=== PATIENT | female | born 1980 | race Hispanic/Latino ===

== ENCOUNTER 2016-06-24 13:08 | Emergency (ER) | payer MEDICAID ==
[2016-06-24 13:19] VITALS: BP 128/82
[2016-06-24] MEDS ORDERED: TORADOL IM ONE (14:23)
--- NOTE | 2016-06-24 14:34 | Emergency Department Report ---
ED ENT HPI - General Chief complaint: Dental/Oral Stated complaint: MOUTH PAIN Time Seen by Provider: 06/24/16 14:16 Source: patient Mode of arrival: Ambulatory Limitations: No Limitations - History of Present Illness Initial comments: Patient presents with toothache x last night. States had extraction of tooth in question about 1 month ago. States had a growth spur developing at site of extraction. States told by dentist it will go away with time. States last night the spur penetrated out of her gum, casing her a lot of pain. Denies fever, chills, N/V, difficulty swallowing, sore throat. Patient has diabetes which is currently being managed by her PCP. States had office visit yesterday and was put on a new diabetes medication for better BG control. Now on Glipizide and Onglyzer, and topamax to curb/control her sugar/soda cravings. - Related Data Home Medications Medication Instructions Recorded Confirmed Last Taken glipiZIDE [Glucotrol] 5 mg PO DAILY 07/13/13 01/26/16 Unknown HYDROcodone/APAP 10-325 [Howell 1 each PO Q6HR PRN 01/26/16 01/26/16 Unknown 10/325] Losartan [Cozaar] 50 mg PO QDAY 01/26/16 01/26/16 Unknown Rivaroxaban [Xarelto] 20 mg PO QDAY 01/26/16 01/26/16 Unknown Saxagliptin HCl [Onglyza] 5 mg PO DAILY 01/26/16 01/26/16 Unknown traZODone [Desyrel] 100 mg PO QHS 01/26/16 01/26/16 Unknown Previous Rx's Medication Instructions Recorded Last Taken Type Oxycodone HCl/Acetaminophen 1 each PO Q6HR PRN #20 tablet 12/26/15 01/25/16 Rx [Percocet 10/325 mg] Magnesium Oxide [Rivera] 500 mg PO QDAY #10 tablet 01/26/16 Unknown Rx Ondansetron [Zofran Odt] 4 mg PO QID PRN #20 tab.rapdis 01/26/16 Unknown Rx Potassium Chloride 20 meq PO QDAY #10 tablet.er 01/26/16 Unknown Rx cloNIDine [Catapres] 0.1 mg PO BID PRN #15 tablet 01/26/16 Unknown Rx Acetaminophen/Codeine [Tylenol #3] 1 tab PO Q4HR PRN #5 tablet 06/24/16 Unknown Rx Ibuprofen [Motrin] 800 mg PO Q8HR PRN #10 tablet 06/24/16 Unknown Rx Allergies Allergy/AdvReac Type Severity Reaction Status Date / Time cephalexin monohydrate AdvReac Vomiting Verified 01/10/15 14:58 [From Keflex] tramadol HCl [From Ultram] AdvReac Vomiting Verified 01/10/15 14:58 ED Dental HPI - General Chief complaint: Dental/Oral Stated complaint: MOUTH PAIN Time Seen by Provider: 06/24/16 14:16 Source: patient Mode of arrival: Ambulatory Limitations: No Limitations - Related Data Home Medications Medication Instructions Recorded Confirmed Last Taken glipiZIDE [Glucotrol] 5 mg PO DAILY 07/13/13 01/26/16 Unknown HYDROcodone/APAP 10-325 [Howell 1 each PO Q6HR PRN 01/26/16 01/26/16 Unknown 10/325] Losartan [Cozaar] 50 mg PO QDAY 01/26/16 01/26/16 Unknown Rivaroxaban [Xarelto] 20 mg PO QDAY 01/26/16 01/26/16 Unknown Saxagliptin HCl [Onglyza] 5 mg PO DAILY 01/26/16 01/26/16 Unknown traZODone [Desyrel] 100 mg PO QHS 01/26/16 01/26/16 Unknown Previous Rx's Medication Instructions Recorded Last Taken Type Oxycodone HCl/Acetaminophen 1 each PO Q6HR PRN #20 tablet 12/26/15 01/25/16 Rx [Percocet 10/325 mg] Magnesium Oxide [Rivera] 500 mg PO QDAY #10 tablet 01/26/16 Unknown Rx Ondansetron [Zofran Odt] 4 mg PO QID PRN #20 tab.rapdis 01/26/16 Unknown Rx Potassium Chloride 20 meq PO QDAY #10 tablet.er 01/26/16 Unknown Rx cloNIDine [Catapres] 0.1 mg PO BID PRN #15 tablet 01/26/16 Unknown Rx Acetaminophen/Codeine [Tylenol #3] 1 tab PO Q4HR PRN #5 tablet 06/24/16 Unknown Rx Ibuprofen [Motrin] 800 mg PO Q8HR PRN #10 tablet 06/24/16 Unknown Rx Allergies Allergy/AdvReac Type Severity Reaction Status Date / Time cephalexin monohydrate AdvReac Vomiting Verified 01/10/15 14:58 [From Keflex] tramadol HCl [From Ultram] AdvReac Vomiting Verified 01/10/15 14:58 ED Review of Systems ROS: Stated complaint: MOUTH PAIN Other details as noted in HPI Comment: All other systems reviewed and negative ED Past Medical Hx - Past Medical History Previous Medical History?: Yes Hx Hypertension: Yes (takes losartan 50mg) Hx Diabetes: Yes (controlled with glipizide 10mg and Onglyza 5mg) Hx Renal Disease: Yes - Surgical History Past Surgical History?: Yes Hx Cholecystectomy: Yes Additional Surgical History: L Ovary; C section x2. hysterectomy - Social History Smoking Status: Never Smoker Substance Use Type: None - Medications Home Medications: Home Medications Medication Instructions Recorded Confirmed Last Taken Type glipiZIDE [Glucotrol] 5 mg PO DAILY 07/13/13 01/26/16 Unknown History Oxycodone HCl/Acetaminophen 1 each PO Q6HR PRN #20 tablet 12/26/15 01/26/1610/04 Rx [Percocet 10/325 mg] HYDROcodone/APAP 10-325 [Howell 1 each PO Q6HR PRN 01/26/16 01/26/16 Unknown History 10/325] Losartan [Cozaar] 50 mg PO QDAY 01/26/16 01/26/16 Unknown History Magnesium Oxide [Rivera] 500 mg PO QDAY #10 tablet 01/26/16 Unknown Rx Ondansetron [Zofran Odt] 4 mg PO QID PRN #20 tab.rapdis 01/26/16 Unknown Rx Potassium Chloride 20 meq PO QDAY #10 tablet.er 01/26/16 Unknown Rx Rivaroxaban [Xarelto] 20 mg PO QDAY 01/26/16 01/26/16 Unknown History Saxagliptin HCl [Onglyza] 5 mg PO DAILY 01/26/16 01/26/16 Unknown History cloNIDine [Catapres] 0.1 mg PO BID PRN #15 tablet 01/26/16 Unknown Rx traZODone [Desyrel] 100 mg PO QHS 01/26/16 01/26/16 Unknown History Acetaminophen/Codeine [Tylenol #3] 1 tab PO Q4HR PRN #5 tablet 06/24/16 Unknown Rx Ibuprofen [Motrin] 800 mg PO Q8HR PRN #10 tablet 06/24/16 Unknown Rx ED Physical Exam - General Limitations: No Limitations General appearance: alert, in no apparent distress, other (appears in moderate pain.) - Head Head exam: Present: atraumatic, normocephalic - Eye Eye exam: Present: normal appearance, PERRL, EOMI. Absent: scleral icterus, conjunctival injection, periorbital swelling, periorbital tenderness - ENT ENT exam: Present: mucous membranes moist, TM's normal bilaterally, normal external ear exam. Absent: normal orophraynx (pointy, what appears to be erupted tooth in space of 2nd molar, top right. Evidence of recent dental work present at site. No erythema, edema, abscess of gum.) - Neck Neck exam: Present: normal inspection, full ROM. Absent: tenderness, meningismus, lymphadenopathy - Respiratory Respiratory exam: Present: normal lung sounds bilaterally. Absent: respiratory distress - Cardiovascular Cardiovascular Exam: Present: regular rate, normal rhythm - GI/Abdominal GI/Abdominal exam: Present: soft, normal bowel sounds. Absent: distended, tenderness - Extremities Exam Extremities exam: Present: normal inspection, full ROM - Neurological Exam Neurological exam: Present: alert, oriented X3, normal gait - Psychiatric Psychiatric exam: Present: normal affect, normal mood - Skin Skin exam: Present: warm, dry, intact, normal color. Absent: rash ED Course Vital Signs 06/24/16 13:16 Temperature 98.0 F Pulse Rate 82 Respiratory 18 Rate Blood Pressure 128/82 O2 Sat by Pulse 100 Oximetry ED Medical Decision Making - Medical Decision Making 36-year-old female with toothache without visible abscess. Patient is stable. She will be DC'd on appropriate pain management and follow up with her dentist. Patient's rapid glucose check noted. She is instructed to continue to follow up with her PCP. She is a well-developed importance/benefits of tight blood glucose control. She was given opportunities to ask questions. All questions were answered appropriately. Critical care attestation.: If time is entered above; I have spent that time in minutes in the direct care of this critically ill patient, excluding procedure time. ED Disposition Clinical Impression: Tooth ache, Late tooth eruption, Retained tooth Disposition: DISCHARGED TO HOME OR SELFCARE Is pt being admited?: No Does the pt Need Aspirin: No Condition: Stable Instructions: Teething (ED), Toothache (ED) Additional Instructions: Follow instructions for care. Use medications as prescribed. Call your dentist to schedule an immediate follow-up. Continue to follow up with your PCP for diabetes. Return to ED for new or worsening condition. Prescriptions: Acetaminophen/Codeine [Tylenol #3] 1 tab PO Q4HR PRN #5 tablet PRN Reason: Pain Ibuprofen [Motrin] 800 mg PO Q8HR PRN #10 tablet PRN Reason: Pain Referrals: PRIMARY CARE, [Primary Care Provider] - 2-3 Days
== END 2016-06-24 14:50 | disposition home or self-care (01) ==
LOC: ED 13:08
DX: K00.6 Disturbances in tooth eruption (principal); K08.89 Other specified disorders of teeth and supporting structures; K08.3 Retained dental root; I10 Essential (primary) hypertension; E11.9 Type 2 diabetes mellitus without complications; Z90.49 Acquired absence of other specified parts of digestive tract
CPT/HCPCS: 82962; 96372; 99282; J1885